=== PATIENT | female | born 2000 | race Caucasian/White ===

== ENCOUNTER 2020-10-04 12:43 | Outpatient (CLI) | payer OTHER | END 2020-10-04 18:52 | disposition home or self-care (01) | LOC: GENOP 12:43 | DX: O99.891 Other specified diseases and conditions complicating pregnancy (principal); N89.8 Other specified noninflammatory disorders of vagina; R10.2 Pelvic and perineal pain; Z3A.27 27 weeks gestation of pregnancy | CPT/HCPCS: 82731; 83518; 96360; 96361; 96372; J0702; J3105 ==